=== PATIENT | male | born 1965 ===

== ENCOUNTER 2021-03-21 22:14 | Emergency (ER) | payer SELFPAY ==
[2021-03-21 22:15] VITALS: BP 107/77; PULSE 69; RESP 24; TEMP 36.4; O2SAT 100
--- NOTE | 2021-03-21 23:11 | PC.NURSE ---
Pt to intake desk and while ambulating out and states You guys take care, I cant sit here, I am going to try to go to [place] to be seen instead.
== END 2021-03-21 23:42 | disposition left against medical advice (07) ==
LOC: ANHED 23:42
PROVIDERS: PCP Emergency Medicine
DX: R10.9 Unspecified abdominal pain (principal)
CPT/HCPCS: 99199